=== PATIENT | female | born 1985 | race Caucasian/White ===

== ENCOUNTER 2017-08-17 04:07 | Emergency (ER) | payer MEDICAID ==
[~2017-08-17] VITALS: Ht 147.3 cm; Wt 61.3 kg
[~2017-08-17 04:07] MED LIST: PREN1COM11 PO; PREN1TAB49
[2017-08-17 04:27] VITALS: Ht 147.3 cm; Wt 61.3 kg
[2017-08-17 08:14] LABS: BASOPHILS % 0.7 % (0.0-2.0); EOSINOPHILS # 0.1 10^3/ul (0.0-0.5); HEMATOCRIT 39.4 % (37.0-47.0); HEMOGLOBIN 13.6 g/dl (12.0-16.0); LYMPHOCYTES # 1.3 10^3/ul (0.8-2.9); LYMPHOCYTES % 28.5 % (15.0-51.0); MEAN CORPUSCULAR HEMOGLOBIN 30.4 pg (29.0-33.0); MEAN CORPUSCULAR HGB CONC 34.5 g/dl (32.0-37.0); MEAN CORPUSCULAR VOLUME 87.9 fl (82.0-101.0); MEAN PLATELET VOLUME 10.7 fl (7.4-10.4); MONOCYTE # 0.2 10^3/ul (0.3-0.9); MONOCYTES % 5.1 % (0.0-11.0); NEUTROPHIL # 2.9 10^3/ul (1.6-7.5); NEUTROPHILS % 63.3 % (39.0-77.0); PLATELET COUNT 194 10^3/UL (140-415); RED BLOOD COUNT 4.48 10^6/ul (4.20-5.40); RED CELL DISTRIBUTION WIDTH 12.2 % (11.5-14.5); WHITE BLOOD COUNT 4.5 10^3/ul (4.8-10.8)
[2017-08-17 08:24] LABS: ADD UMIC YES; UR ASCORBIC ACID NEGATIVE (NEGATIVE); UR BILIRUBIN (Dip) NEGATIVE (NEGATIVE); UR BLOOD (Dip) 2+ mg/dL (NEGATIVE); UR CLARITY CLEAR (CLEAR); UR COLOR COLORLESS (YELLOW); UR GLUCOSE (Dip) NEGATIVE (NEGATIVE); UR KETONES (Dip) NEGATIVE (NEGATIVE); UR LEUKOCYTE ESTERASE (Dip) NEGATIVE Leu/ul (NEGATIVE); UR NITRITE (Dip) NEGATIVE (NEGATIVE); UR RBC 0 /HPF (0-5); UR SPECIFIC GRAVITY (Dip) 1.001 (1.003-1.030); UR TOTAL PROTEIN (Dip) NEGATIVE (NEGATIVE); UR UROBILINOGEN (Dip) NEGATIVE (NEGATIVE)
[2017-08-17 08:32] LABS: ALBUMIN 4.5 g/dl (3.3-4.9); ALBUMIN/GLOBULIN RATIO 1.45; BILIRUBIN,INDIRECT 0.4 mg/dl (0-1.1); BILIRUBIN,TOTAL 0.4 mg/dl (0.2-1.3); CALCIUM 9.2 mg/dl (8.4-10.2); CREATININE 0.53 mg/dl (0.44-1.00); POTASSIUM 4.4 mmol/L (3.5-5.1); TOTAL PROTEIN 7.6 g/dl (6.1-8.1)
--- NOTE | 2017-08-17 08:49 | RADRPT ---
PROCEDURE: US Pelvis. CLINICAL INDICATION: Pelvic pain and bleeding LAST MENSTRUAL PERIOD: 08/07/2017 TECHNIQUE: Multiple sonographic images of the pelvis were obtained utilizing a transabdominal and endovaginal technique. COMPARISON: None FINDINGS: The uterus is visualized and measures 8.6 x 4.2 x 5.2 cm. The endometrial echo complex is normal and measures 8 mm. Echogenic material within the endometrial canal and cervical canal. There is no evid ence for free fluid. The right ovary has a normal echotexture and measures 3.1 x 1.6 x 2.2 cm. The left ovary has a norm al echotexture and measures 3.6 x 2.1 x 2.5 cm. No adnexal masses are noted. Normal bilateral ovari an blood flow. IMPRESSION: Echogenic material within the endometrial canal and cervical canal may represent blood clots. Recomm end follow-up ultrasound 1 week after bleeding stops. RPTAT:AAJJ Physician Earl Date Time Electronically viewed and signed by Physician Earl on 08/17/2017 08:49 /
--- NOTE | 2017-08-17 10:25 | RADRPT ---
PROCEDURE: CT Abdomen and Pelvis without contrast. CLINICAL INDICATION: Right lower quadrant abdominal pain TECHNIQUE: CT scan of the abdomen and pelvis without contrast was performed without intravenous co ntrast. Coronal and sagittal reformatted images were obtained from the axial source images. Images were reviewed on a high-resolution PACS workstation. CTDI 8 mGy, DLP 462 mGy-cm One or more of the following dose reduction techniques were used: Automated exposure control Adjustment of the mA and/or kV according to patient size. Use of iterative reconstruction technique. DICOM images are available. COMPARISON: None. FINDINGS: The lung bases are clear. The heart size is normal. The aorta and its branches are normal in size and caliber. The kidneys are symmetric in size and density. There is no perinephric fat stranding. There is no ne phroureterolithiasis or hydronephrosis. The ureters are normal in course and caliber. Evaluation of solid organs is limited due to the lack of intravenous contrast. However, the liver, g allbladder, spleen, pancreas, and adrenal glands are unremarkable. Evaluation of the gastrointestinal tract is limited due to the lack of oral contrast. The esophagus and stomach are unremarkable. The small bowel loops are normal in caliber without evidence of smal l bowel obstruction. The appendix is visualized, and is normal on axial images 97 - 106. There is n o free intraperitoneal fluid or pneumoperitoneum. There is no mesenteric, retroperitoneal, or pelvic lymphadenopathy. The bladder is mildly distended, but grossly unremarkable. The uterus and adnexa are unremarkable. Please see same day pelvic ultrasound for additional details of the pelvic organs. There is no pelvi c free fluid. The bones and soft tissues are unremarkable. There are no acute fractures. RPTAT: ZZ IMPRESSION: 1. No acute intra-abdominal abnormality. 2. No mass, lymphadenopathy, or focal acute inflammatory process is identified. .Estelle Hinojosa MD, MD Date Time Electronically viewed and signed by .Estelle Hinojosa MD, MD on 08/17/2017 10:24 .T/
[2017-08-17] MEDS ORDERED: ACET500C5 PO (10:38)
--- NOTE | 2017-08-17 16:55 | ERD ---
ER Documentation Chief Complaint Chief Complaint burning pain when urinating HPI 32-year-old female complaining of blood in the urine since yesterday. Since 3 AM this morning patient stopped all of her pelvic pain. She did not take any pain medications at home. Her LMP was 08/07/2017. Denies dysuria. Denies fever or chills. Denies vomiting or diarrhea. Denies flank pain. ROS All systems reviewed and are negative except as per history of present illness. Medications Home Meds Active Scripts Acetaminophen* (Tylophen*) 500 Mg Capsule, 1 CAP PO Q6H Y for PAIN AND OR ELEVATED TEMP, #20 CAP Prov:NAHED WEINSTEIN Sara DIRECTOR OF STATE 08/17/17 Reported Medications No.39/Iron/Fa #6/Dha (PRENA1 PLUS COMBO PACK) 1 Each Combo..pkg, 1 EACH PO DAILY 02/23/13 Vits W-Ca,Fe,Fa(<1MG) () 1 Tab Tablet 12/19/10 Allergies Allergies: Coded Allergies: No Known Allergy (Verified , 08/17/17) PMhx/Soc History of Surgery: Yes (CSECTION) Anesthesia Reaction: No Hx Neurological Disorder: No Hx Respiratory Disorders: No Hx Cardiac Disorders: No Hx Psychiatric Problems: No Hx Miscellaneous Medical Probl: No Hx Alcohol Use: No Hx Substance Use: No Hx Tobacco Use: No Smoking Status: Never smoker Physical Exam Vitals Vital Signs Date Time Temp Pulse Resp B/P Pulse Ox O2 Delivery O2 Flow Rate FiO2 08/17/17 04:27 98.3 65 18 115/70 97 Physical Exam General: Well-developed, well-nourished, conscious and coherent, in no distress Skin: Warm and dry without rash, good texture and turgor Head: Normocephalic without evidence of trauma Eyes: Sclera and conjunctivae normal; pupils equal, round, and reactive to light; extraocular movements are intact Chest: Normal AP diameter. Good expansion without retractions. Nontender. Lungs are clear to auscultate bilaterally with good tidal volume Heart: Regular rate and rhythm. No murmur, rub, or gallops heard Abdomen: Soft, right lower quadrant tenderness without masses, guarding, or rebound. Bowel sounds are active. No hepatosplenomegaly Back: Without spinal or CVA tenderness Extremities: Full range of motion. Good strength bilaterally. No clubbing, cyanosis, or edema. Peripheral pulses are intact. Sensation intact Neuro: Alert and oriented 4, GCS 15. Cranial nerves grossly intact. Motor and sensory exams nonfocal. Moves all extremities. Speech clear. Gait normal Result Diagram: 08/17/17 0808/17/17 08 Results 24 hrs Laboratory Tests Test 08/17/17 07:54 08/17/17 08:05 Urine Color COLORLESS Urine Clarity CLEAR Urine pH 7.0 Urine Specific [place] 1.001 Urine Ketones NEGATIVEmg/dL Urine Nitrite NEGATIVEmg/dL Urine Bilirubin NEGATIVEmg/dL Urine Urobilinogen NEGATIVEmg/dL Urine Leukocyte Esterase NEGATIVELeu/ul Urine Microscopic RBC 0/HPF Urine Microscopic WBC 0/HPF Urine Hemoglobin 2+mg/dL Urine Glucose NEGATIVEmg/dL Urine Total Protein NEGATIVEmg/dl White Blood Count 4.510^3/ul Red Blood Count 4.4810^6/ul Hemoglobin 13.6g/dl Hematocrit 39.4% Mean Corpuscular Volume 87.9fl Mean Corpuscular Hemoglobin 30.4pg Mean Corpuscular Hemoglobin Concent 34.5g/dl Red Cell Distribution Width 12.2% Platelet Count 67361^3/UL Mean Platelet Volume 10.7fl Neutrophils % 63.3% Lymphocytes % 28.5% Monocytes % 5.1% Eosinophils % 2.0% Basophils % 0.7% Nucleated Red Blood Cells % 0.0/100WBC Neutrophils # 2.910^3/ul Lymphocytes # 1.310^3/ul Monocytes # 0.210^3/ul Eosinophils # 0.110^3/ul Basophils # 0.010^3/ul Nucleated Red Blood Cells # 0.010^3/ul Sodium Level 141mmol/L Potassium Level 4.4mmol/L Chloride Level 102mmol/L Carbon Dioxide Level 28mmol/L Anion Gap 15 Blood Urea Nitrogen 6mg/dl Creatinine 0.53mg/dl Glucose Level 99mg/dl Calcium Level 9.2mg/dl Total Bilirubin 0.4mg/dl Direct Bilirubin 0.00mg/dl Indirect Bilirubin 0.4mg/dl Aspartate Amino Transf (AST/SGOT) 26IU/L Alanine Aminotransferase (ALT/SGPT) 38IU/L Alkaline Phosphatase 70IU/L Total Protein 7.6g/dl Albumin 4.5g/dl Globulin 3.10g/dl Albumin/Globulin Ratio 1.45 Lipase 92U/L PROCEDURE: US Pelvis. CLINICAL INDICATION: Pelvic pain and bleeding LAST MENSTRUAL PERIOD: 08/07/2017 TECHNIQUE: Multiple sonographic images of the pelvis were obtained utilizing a transabdominal and endovaginal technique. COMPARISON: None FINDINGS: The uterus is visualized and measures 8.6 x 4.2 x 5.2 cm. The endometrial echo complex is normal and measures 8 mm. Echogenic material within the endometrial canal and cervical canal. There is no evidence for free fluid. The right ovary has a normal echotexture and measures 3.1 x 1.6 x 2.2 cm. The left ovary has a normal echotexture and measures 3.6 x 2.1 x 2.5 cm. No adnexal masses are noted. Normal bilateral ovarian blood flow. IMPRESSION: Echogenic material within the endometrial canal and cervical canal may represent blood clots. Recommend follow-up ultrasound 1 week after bleeding stops. RPTAT:AAJJ Physician Earl Date Time Electronically viewed and signed by Physician Earl on 08/17/2017 08 :49 MH/ CC: NAHED WEINSTEIN NP PROCEDURE: CT Abdomen and Pelvis without contrast. CLINICAL INDICATION: Right lower quadrant abdominal pain TECHNIQUE: CT scan of the abdomen and pelvis without contrast was performed without intravenous contrast. Coronal and sagittal reformatted images were obtained from the axial source images. Images were reviewed on a high- resolution PACS workstation. CTDI 8 mGy, DLP 462 mGy-cm One or more of the following dose reduction techniques were used: Automated exposure control Adjustment of the mA and/or kV according to patient size. Use of iterative reconstruction technique. DICOM images are available. COMPARISON: None. FINDINGS: The lung bases are clear. The heart size is normal. The aorta and its branches are normal in size and caliber. The kidneys are symmetric in size and density. There is no perinephric fat stranding. There is no nephroureterolithiasis or hydronephrosis. The ureters are normal in course and caliber. Evaluation of solid organs is limited due to the lack of intravenous contrast. However, the liver, gallbladder, spleen, pancreas, and adrenal glands are unremarkable. Evaluation of the gastrointestinal tract is limited due to the lack of oral contrast. The esophagus and stomach are unremarkable. The small bowel loops are normal in caliber without evidence of small bowel obstruction. The appendix is visualized, and is normal on axial images 97 - 106. There is no free intraperitoneal fluid or pneumoperitoneum. There is no mesenteric, retroperitoneal, or pelvic lymphadenopathy. The bladder is mildly distended, but grossly unremarkable. The uterus and adnexa are unremarkable. Please see same day pelvic ultrasound for additional details of the pelvic organs. There is no pelvic free fluid. The bones and soft tissues are unremarkable. There are no acute fractures. RPTAT: ZZ IMPRESSION: 1. No acute intra-abdominal abnormality. 2. No mass, lymphadenopathy, or focal acute inflammatory process is identified. .Estelle Hinojosa MD, MD Date Time Electronically viewed and signed by .Estelle Hinojosa MD, MD on 08/17/2017 10: 24 .T/ CC: NAHED WEINSTEIN. DIRECTOR OF STATE Procedures/MDM Well-appearing 32-year-old female presented ED with hematuria and pelvic pain. Patient is noted to have right lower quadrant abdomen or right pelvic tenderness on exam. CBC, CMP, lipase, and UA are all unremarkable except for blood in the urine. Pelvic ultrasound showed echogenic material within the endometrial canal and cervical canal may represent blood clot. No adnexal masses are noted. Her urine test negative. Low suspicion for I doubt ectopic . Because the patient's right lower quadrant tenderness, CT abdomen pelvis without IV contrast was obtained. CT showed no acute intracranial abdominal abnormality. No mass, lymphadenopathy, or focal acute inflammatory process is identified. I think likely cause of patient's "hematuria" and pelvic pain is due to menstruation. Patient appears well, stable for discharge and outpatient management. Medical decision making shared with patient and family. Education provided to patient and family. Patient and family expressed understanding of the plan. Medications on discharge: Tylenol Follow-up: Primary care provider in 2-3 days or return to ED if worse. The case was reviewed and discussed with Dr. Thomas, who agrees with the plan of care. Disclaimer: Inadvertent spelling and grammatical errors are likely due to EHR/ dictation software use and do not reflect on the overall quality of patient care. Also, please note that the electronic time recorded on this note does not necessarily reflect the actual time of the patient encounter. Departure Diagnosis: Primary Impression: Pelvic pain Condition: Stable Patient Instructions: Pelvic Pain, Unknown Cause [facility] Usted se briceno hecho un examen mdico de control que le indica que no est en jamie condicin que requiera tratamiento urgente en el Departamento de Emergencia. Un estudio ms profundo y el tratamiento de cueto condicin pueden esperar sin ningn riesgo hasta que usted sea atendida/o en el consultorio de cueto mdico o jamie cl courtney. Es responsabilidad suya arreglar jamie saeed para el seguimiento del everardo. MANEJO DE CONDICIONES NO URGENTES EN EL FUTURO 1) Si usted tiene un mdico de atencin primaria: Usted debera llamar a cueto mdico de atencin primaria antes de venir al departamento de emergencia. Despus de las horas de consultorio, cueto doctor o cueto asociado/a est disponible por telfono. El mdico o enfermero de makayla en el servicio telefnico puede asesorarle por stephanie medio para atender el problema, o everardo contrario se puede programar jamie saeed. 2) Si usted no tiene un mdico de atencin primaria: Llame al mdico o clnica de referencia que aparece abajo mireille las horas de consultorio para hacer jamie saeed para que le vean. CLINICAS: [facility] [phone] [facility] 262 [phone] [facility] [phone] [place] [id number] [phone] [place] [id number] [phone] [facility]. [phone] [address] Additional Instructions: Llame al doctor MAANA y марина jamie SAEED PARA DENTRO DE 2-3 BECK.Dgale a la secretaria que nosotros le instruimos hacer esta saeed.Avise o llame si cueto condicin se empeora antes de la saeed. Regresa aqui si peor o no mejor. NAHED WEINSTEIN. LUCERO Aug 17, 2017 16:55
== END 2017-08-17 10:53 | disposition home or self-care (01) ==
LOC: FTE 04:07
DX: R10.2 Pelvic and perineal pain (principal)
CPT/HCPCS: 36415; 74176; 76830; 76856; 80053; 81001; 83690; 85025; Z7502

== ENCOUNTER 2018-07-10 11:11 | Emergency (ER) | END 2018-07-10 13:30 | disposition home or self-care (01) ==

== ENCOUNTER 2019-01-23 12:35 | Emergency (ER) | payer MEDICAID ==
[~2019-01-23] VITALS: Wt 65.5 kg
[~2019-01-23 12:35] MED LIST changes: +ACET500C5 PO; +ALBU18HF INHALATION; +AZIT250T PO; +GUAI5SYR2 PO; +PRED20TA PO
[2019-01-23 12:58] VITALS: BP 113/67; PULSE 78; RESP 20
[2019-01-23] MEDS ORDERED: KETOROLAC 60 MG INJ IM STA (13:41)
--- NOTE | 2019-01-23 14:10 | ERD ---
ER Documentation Chief Complaint Chief Complaint L FLANK PAIN X 5 DAYS HPI This is a 33-year-old female denies significant past medical history presents to ED with complaints of left low back pain x5 days. Patient denies any fall or injury to account for pain. Patient states the pain waxes and wanes in severity. Patient states the pain is worse at night which she rates at a 6 out of 10. Patient currently rates pain at a 3 out of 10. Denies fever, chills, nausea, vomiting, diarrhea, constipation, dysuria, hematuria, and all other symptoms. Denies chance of being ROS All systems reviewed and are negative except as per history of present illness. Medications Home Meds Active Scripts Cyclobenzaprine Hcl* (Cyclobenzaprine Hcl*) 10 Mg Tablet, 10 MG PO TID, #15 TAB Prov:RAMIRO SOLIS PA-C 01/23/19 Ibuprofen* (Motrin*) 600 Mg Tab, 600 MG PO Q6, #30 TAB Prov:RAMIRO SOLIS PA-C 01/23/19 Guaifenesin-Dextromethorphan* (Robitussin* DM) 100MG/10MG/5ML Syrup, 10 ML PO Q6H PRN for COUGH for 5 Days, ML Prov:CLIVE EUBANKS PA-C 07/10/18 Azithromycin* (Zithromax*) 250 Mg Tablet, 250 MG PO .ZPACK DIRECTED, #6 TAB TAKE 500 MG (2 TABS) THE FIRST DAY THEN 250 MG (1 TAB) DAYS 2-5 Prov:CLIVE EUBANKS PA-C 07/10/18 Prednisone* (Prednisone*) 20 Mg Tab, 40 MG PO DAILY for 4 Days, TAB Prov:CLIVE EUBANKS PA-C 07/10/18 Albuterol Sulfate* (Ventolin HFA*) 18 Gm Hfa.aer.ad, 2 PUFF INHALATION Q6H, #1 INHALER Prov:CLIVE EUBANKS PA-C 07/10/18 Acetaminophen* (Tylophen*) 500 Mg Capsule, 1 CAP PO Q6H PRN for PAIN AND OR ELEVATED TEMP, #20 CAP Prov:NAHED WEINSTEIN LEAD ATHLETE 08/17/17 Reported Medications No.39/Iron/Fa #6/Dha (PRENA1 PLUS COMBO PACK) 1 Each Combo..pkg, 1 EACH PO DAILY 02/23/13 Vits W-Ca,Fe,Fa(<1MG) () 1 Tab Tablet 12/19/10 Allergies Allergies: Coded Allergies: No Known Allergy (Verified , 07/10/18) PMhx/Soc History of Surgery: Yes (CSECTIONX3) Anesthesia Reaction: No Hx Neurological Disorder: No Hx Respiratory Disorders: No Hx Cardiac Disorders: No Hx Psychiatric Problems: No Hx Miscellaneous Medical Probl: No Hx Alcohol Use: No Hx Substance Use: No Hx Tobacco Use: No Physical Exam Vitals Vital Signs Date Temp Pulse Resp B/P (MAP) Pulse Ox O2 O2 Flow FiO2 Time Delivery Rate 01/23/19 98.9 78 20 113/67 99 12:58 (82) Physical Exam Physical Exam Vitals signs: Reviewed by me. General: Well developed, well nourished, in no acute distress. Patient is awake and alert. Head: Normocephalic, atraumatic. Eyes: Normal conjunctiva, Pupils PERRLA, EOM intact grossly ENT: Pharynx is clear, Moist mucous membranes, external ears, nose and mouth normal Neck: Supple, no masses, lymphadenopathy or JVD Respiratory: Clear to auscultation bilaterally with no wheezing, rhonchi, rales, no distress Cardiovascular: RRR, no murmurs, rubs, or gallops Abdominal: Soft, nondistended, no peritoneal signs, no rigidity, no surgical abdomen, bowel sounds present all 4 quadrants, nontender light deep palpation all 4 quadrants, McBurney's point nontender, no rebound tenderness : Deferred MSK: No edema, no unilateral swelling, 5/5 strength Back: No thoracic or lumbar midline tenderness, no CVA tenderness, there is mild tenderness palpation along the paravertebral muscles in the left low back, straight leg raise negative bilaterally Neurologic: Alert and oriented, moving all extremities, normal speech, no focal weakness, no cerebellar signs. Normal mentation Skin: warm and dry, No rash Psych: Normal mood Results 24 hrs Laboratory Tests Test 01/23/19 14:05 Urine Color COLORLESS Urine Clarity CLEAR Urine pH 7.0 Urine Specific [place] 1.002 Urine Ketones NEGATIVE mg/dL Urine Nitrite NEGATIVE mg/dL Urine Bilirubin NEGATIVE mg/dL Urine Urobilinogen NEGATIVE mg/dL Urine Leukocyte Esterase NEGATIVE Shantanu/ul Urine Hemoglobin NEGATIVE mg/dL Urine Glucose NEGATIVE mg/dL Urine Total Protein NEGATIVE mg/dl POC Beta HCG, Qualitative NEGATIVE Current Medications Medications Dose Sig/Kong Start Time Status Last (Trade) Ordered Route PRN Stop Time Admin Dose Reason Admin Ketorolac 60 mg ONCE STAT 01/23/19 DC Tromethamine IM 13:41 (Toradol) 01/23/19 13:44 Procedures/MDM LAB INTERPRETATION: UA unremarkable ER COURSE: The patient was given toradol The medication was well tolerated and the patient reports improvement in symptoms. The patient was stable throughout ED course. I kept the patient and/or family informed of laboratory and diagnostic imaging results throughout the emergency room course. The patient was promptly evaluated and a treatment plan was devised based on H&P and other data. This plan was discussed with the patient who agreed and had no further questions or concerns prior to discharge. MEDICAL DECISION MAKING: This is a 33-year-old female with a nonsignificant past medical history presents ED with complaints of left low back pain x 5 days. Given location of back pain being along the paravertebral muscles this is likely a muscle strain or muscle related pain. History and physical examination other data not consistent with processing including uti, cauda equina syndrome, cord compression, infiltrative etiology, infectious etiology, epidural abscess, fracture, obstructive pyelonephritis, abdominal aortic aneurysm. Vitals are stable and patient can be managed outpatient with close follow-up. Advised patient to follow up with primary care in the next 48 hours. return to ED with any worsening symptoms DISPOSITION PLAN: We discussed follow up with the patient's primary care doctor within 24 to 48 hours. Patient counseled regarding my diagnostic impression and care plan. Prior to discharge all questions answered. Pt agrees with treatment plan and understands strict return precautions. Precautionary instructions provided inc luding instructions to return to the ER if not improving or for any worsening or changing symptoms or concerns. SPECIALIST FOLLOW UP RECOMMENDED: None Patient has been advised to follow up with primary care in 1-2 days. Disclaimer: Inadvertent spelling and grammatical errors are likely due to EHR/dictation software use and do not reflect on the overall quality of patient care. Also, please note that the electronic time recorded on this note does not necessarily reflect the actual time of the patient encounter. Departure Diagnosis: Primary Impression: Back pain Back pain location: low back pain Chronicity: acute Back pain laterality: left Sciatica presence: without sciatica Qualified Codes: M54.5 - Low back pain Condition: Stable Patient Instructions: Back Pain (Acute Or Chronic) [facility] Additional Instructions: Paciente aconseja volver a Departamento de urgencias inmediatamente para sntomas nuevos o que empeoran . Paciente aconseja posteriores con el PCP en 1-2 lam . Paciente verbaliza la comprehensin y est de acuerdo con el tratamiento y el curso de accin. Si el paciente no tiene ninguna de atencin primaria pueden seguir con [facility] [address] [place] [address] o [facility] + [address] [address] RAMIRO SOLIS PA-C January 23, 2019 14:10
[2019-01-23] MEDS ORDERED: IBUP-1542 PO (14:24)
[2019-01-23] MEDS ORDERED: CYCL10TA7 PO (14:24)
== END 2019-01-23 15:08 | disposition home or self-care (01) ==
LOC: FTE 12:35
DX: M54.5 Low back pain (principal)
CPT/HCPCS: 81003; 81025; 96372; J1885; Z7502